=== PATIENT | female | born 1960 | race Caucasian/White ===

== ENCOUNTER 2017-03-15 13:23 | Emergency (ER) | payer BC ==
[2017-03-15 13:33] VITALS: BP 143/69
--- NOTE | 2017-03-15 15:59 | ED ---
Throat Pain/Nasal Congestion - HPI Summary HPI Summary: Patient presents with a complaint that she feels like her right eye vision is intermittently blurry with a small "pressure" behind her eye and intermittent floaters. She denies trauma, ESQUIVEL, eye pain of any kind, fever, swelling, drainage or itching. She last saw her optomitrist in Oct, 2016 and had a normal check up. She does not wear contacts or glasses, and does not have a foreign body sensation. - History of Current Complaint Chief Complaint: EDEyeProblem Time Seen by Provider: 03/15/17 13:44 Hx Obtained From: Patient Onset/Duration: Lasting Days, Resolved Severity: Mild Associated Signs And Symptoms: Positive: Negative Cough: None PMH/Surg Hx/FS Hx/Imm Hx Cardiovascular History: Denies: Hx Pacemaker/ICD Sensory History: Denies: Hx Contacts or Glasses, Hx Hearing Aid Opthamlomology History: Denies: Hx Contacts or Glasses Psychiatric History: Denies: Hx Panic Disorder - Cancer History Hx Chemotherapy: No Hx Radiation Therapy: No - Surgical History Surgery Procedure, Year, and Place: 1969 SKULL FRACTURE(BONE FRAGMENTS REMOVED) CLIPS IN HEAD; SKULL IMPLANT FOR SUPPORT 3 YRS AGO; MICRO DISCECTOMY L4-L5 1998 ; D&C 1984. NEED INFO ON CLIPS IN BRAINDR. SALAZAR CONFIRMED THE CLIPS ARE IN THE BRAIN TISSUE, NOT THE SKULL AND WILL NOT CLEAR PATIENT FOR MRI UNTIL OPERATIVE REPORT CAN PROVE THE CLIPS ARE SAFE Infectious Disease History: Denies: Traveled Outside the [place] in Last 30 Days - Family History Known Family History: Positive: None - Social History Occupation: Employed Part-time Lives: With Family Alcohol Use: Occasionally Substance Use Type: Reports: None Smoking Status (MU): Never Smoked Tobacco Review of Systems Negative: Photophobia, Blurred Vision, Diplopia, Drainage, Erythema Neurological: Negative Negative: Headache All Other Systems Reviewed And Are Negative: Yes Physical Exam Triage Information Reviewed: Yes Vital Signs On Initial Exam: Initial Vitals Temp Pulse Resp BP Pulse Ox 98.9 F 69 16 143/69 100 03/15/17 13:30 03/15/17 13:30 03/15/17 13:30 03/15/17 13:30 03/15/17 13:30 Vital Signs Reviewed: Yes Appearance: Positive: Well-Appearing, No Pain Distress, Thin Skin: Positive: Warm, Skin Color Reflects Adequate Perfusion, Dry, Soft Head/Face: Positive: Normal Head/Face Inspection Eyes: Positive: EOMI, KENDRA, Conjunctiva Clear. Negative: Discharge ENT: Positive: Hearing grossly normal Neck: Positive: Supple, Nontender Respiratory/Lung Sounds: Positive: Breath Sounds Present Cardiovascular: Positive: RRR Musculoskeletal: Negative: Edema Left, Edema Right Neurological: Positive: Sensory/Motor Intact, Alert, Oriented to Person Place, Time, NV Bundle Intact Distally, Normal Gait Psychiatric: Positive: Affect/Mood Appropriate AVPU Assessment: Alert Procedures - Eye Procedure Alcaine Drops Administered: Yes - for fluoroscene and tonometry exam- eye pressure 18 average Diagnostics - Vital Signs Vital Signs Temp Pulse Resp BP Pulse Ox 03/15/17 13:49 98.9 F 69 16 143/69 98 03/15/17 13:30 98.9 F 69 16 143/69 100 - Laboratory Lab Statement: Any lab studies that have been ordered have been reviewed, and results considered in the medical decision making process. EENT Course/Dx - Differential Diagnoses Differential Diagnoses: Abrasion, Corneal Abrasion, Foreign Body, Keratitis, Pain of Unknown Etiology, Penetrating Injury, Retinal Artery Occlusion, Uveitis - Diagnoses Provider Diagnoses: Discomfort of right eye Discharge - Discharge Plan Condition: Stable Disposition: HOME Patient Education Materials: Eye Pain (ED) Referrals: Jas Mcgovern MD [Primary Care Provider] - Deangelo Humphries MD [Medical Doctor] - Additional Instructions: Please call Dr. Smith's office or Dr. Humphries for a follow-up appointment. Return to the emergency department if symptoms worsen.
== END 2017-03-15 15:15 | disposition home or self-care (01) ==
LOC: ED 13:23
DX: H57.11 Ocular pain, right eye (principal)
CPT/HCPCS: 99281

== ENCOUNTER 2019-09-03 10:29 | Emergency (ER) | payer BC, OTHER ==
--- OUTSIDE RECORDS SUMMARY | 2019-09-03 10:35 | XMS REPORT | Continuity of Care Document ---
:1960 External Reference #:[id number] Author Name Monica Ng M.D. (transmitted by agent of provider Annamaria Rose) Address [address], [place] [address] Care Team Providers Name Role Phone Vika Morrell MD - Family Care Team Information Chairman & Ceo Medicine Lashay Lagunas MD - Internal Care Team Information Chairman & Ceo Medicine Problems Active Problems Provider Date Localization-related epilepsy Monica Ng M.D. Onset: 06/13/2015 Note: History of skull fracture age 9; intraparenchymal hemorrhage Left parietal region 2010 Social History Type Date Description Comments Sex Unknown Tobacco Use Start: Unknown Never Smoked Cigarettes Smoking Status Reviewed: 07/08/19 Never Smoked Cigarettes ETOH Use Occasionally consumes 1 glass of wine per wine week Tobacco Use Start: Unknown Patient has never smoked Recreational Drug Use Denies Drug Use Exercise Type/Frequency Exercises regularly seven days per week Allergies, Adverse Reactions, Alerts Description No Known Drug Allergies Medications Active Medications SIG Qnty Indications Ordering Provider Date Lamotrigine take 1 by mouth 90tabs Monica Ng, 05/13/2019 150mg daily with 25 mg M.D. Tablets to total 175 mg daily Lisinopril 1 by mouth every 90tabs Unknown 5mg Tablets day Calcium 1200+D3 1 by mouth 0nce a Unknown day [id number]-mg-Unit Tablets ER 24HR Yuvafem one vaginal twice 24tabs Ranjit Woods MD 10mcg Tablets a week Lamotrigine 1 tablet daily 90tabs Monica Ng, 25mg with 150 mg M.D. Tablets tablet to total 175 mg daily dose Probiotic 1 by mouth every Unknown Capsules day Ocuvite-Lutein 1 by mouth every Unknown day Capsules History Medications Lamotrigine take 1 by mouth Javi Rosa, 05/13/2019 - 150mg Tablets twice a day. N.P. 05/12/2019 Immunizations Description No Information Available Vital Signs Date Vital Result Comment 07/08/2019 1:07pm Height 67 inches 5'7" Weight 122.00 lb Heart Rate 62 /min BP Systolic 112 mmHg BP Diastolic 64 mmHg BMI (Body Mass Index) 19.1 kg/m2 01/27/2019 1:01pm Height 67 inches 5'7" Weight 123.00 lb Heart Rate 57 /min BP Systolic 137 mmHg BP Diastolic 70 mmHg O2 % BldC Oximetry 100 % BMI (Body Mass Index) 19.3 kg/m2 Last Menstrual Period [id number] Results Test Date Facility Test Result H/L Range Note Laboratory test 01/27/2019 [facility] Cytology SEE RESULT [address] [place] [address] [phone] Laboratory test 01/07/2019 [facility] Lamotrigine 3.5 g/mL 2.5 - 15.0 [address] (Lamictal) [place] [address] [phone] 1 SEE RESULT BELOW Name: JOYCE DIAMOND : [address]: Ranjit Woods MD Acct: [id number] Unit: [id number] AGE: 58 Location: [facility] Re01/27/19 SEX: F Status: REG REF SPEC: [id number] ANGELICA: 01/27/19-[address] [facility] [address]: Ranjit Woods MD REQ: [id number] RECD: 01/27/19 STATUS: SOUT _ ORDERED: TP IMAGE ANALYS, HPV/Thin Prep COMMENTS: [id number] Negative for Intraepithelial lesion or Malignancy Date Time Test Result Flag (u) Normal Range 01/27/19 1325 @ HPV RNA Negative Negative @ @ The high-risk HPV types detected by the assay include: 16, @ 18, 31, 33, 35, 39, 45, 51, 52, 56, 58, 59, 66, and 68. A. Ectocervical/Endocervical Specimen Adequacy: Satisfactory of evaluation Transformation zone component identified Patient Information: HPV: High risk HPV RNA testing regardless of pap results. Actual Specimen Date: 01/27/19 Last Menstrual Date: 09/28/12 ?: N Post Menopausal?: Y Hysterectomy?: N Signed by and Reported on: REBECA Perry (ASCP) [id number] This Pap test was evaluated with the assistance of the ThinPrep Test Imaging System. Due to cytologic findings at the ice cream dispenser microscope, comprehensive manual rescreening by a Rfid Developer may be required. The Pap Smear is a screening test designed to aid in the detection of premalignant and malignant conditions of the uterine cervix. It is not a diagnostic procedure and should not be used as the sole means of detecting cervical cancer. Both false- positive and false- negative reports do occur. Depending on your risk status, a Pap smear should be obtained and evaluated every 1-3 years. END OF REPORT DEPARTMENT OF PATHOLOGY, [address] [place] [address] See Yancey M.D. Director [facility] # [id number] 2 ADDITIONAL INFORMATION This test was developed and its performance characteristics determined by [facility] in a manner consistent with CLIA requirements. This test has not been cleared or approved by the U.S. Food and Drug Administration. Test Performed by: [facility] [address] [place] [address] Procedures Date Code Description Status 02/14/2019 [id number] Mammogram Completed 01/07/2019 [id number] Mammogram Completed 11/14/2015 [id number] Mammogram Completed Medical Devices Description No Information Available Encounters Type Date Location Provider Dx Diagnosis Office Visit 01/07/2019 [facility] Monica Ng, G40.109 Local- [facility] symp 1:00[facility] Brock epi w simp prt seiz,not ntrct, w/o stat epi S09.90xS Unspecified injury of head, sequela Assessments Date Code Description Provider 07/08/2019 G40.109 Localization-related (focal) (partial) Monica Ng M.D. symptomatic epilepsy 07/08/2019 S09.90xS Unspecified injury of head, sequela Monica Ng M.D. 01/27/2019 Z01.411 Encounter for gynecological examination Ranjit Woods MD (general) (routine) 01/27/2019 N83.292 Other ovarian cyst, left side Ranjit Woods MD 01/27/2019 Z12.31 Encounter for screening mammogram for Ranjit Woods MD malignant neoplasm of 01/27/2019 Z11.51 Encounter for screening for human Ranjit Woods MD papillomavirus (HPV) 01/07/2019 G40.109 Localization-related (focal) (partial) Monica Ng M.D. symptomatic epilepsy 01/07/2019 S09.90xS Unspecified injury of head, sequela Monica Ng M.D. Plan of Treatment Future Appointment(s):01/06/2020 8:30 am - Monica Ng M.D. at [facility]07/08/2019 - Monica Ng M.D.G40.109 Localization- related (focal) (partial) symptomatic epilepsyFollow up:6 OVHOYSQ89.90xS Unspecified injury of head, sequela Functional Status Description No Information Available Mental Status Description No Information Available Referrals Description No Information Available
--- OUTSIDE RECORDS SUMMARY | 2019-09-03 10:35 | XMS REPORT | Continuity of Care Document ---
:1960 External Reference #:[id number] Author Name Deangelo Humphries M.D. Address [address] [place] [address] Care Team Providers Name Role Phone Flaco Smith O.D. - Tank Builder Care Team Information Bench Worker Apprentice Lashay Lagunas MD - Internal Care Team Information Bench Worker Apprentice Medicine Problems Active Problems Provider Date Essential hypertension Onset: Simple partial seizure Onset: Note: right hand Retinal detachment Deangelo Humphries M.D. Onset: 03/16/2017 Benign neoplasm of eyelid including canthus Deangelo Humphries M.D. Onset: FH: Glaucoma Deangelo Humphries M.D. Onset: 04/03/2017 Open-angle glaucoma - borderline Deangelo Humphries M.D. Onset: 12/14/2017 Open angle with borderline findings, high Deangelo Humphries M.D. Onset: 2017 risk, right eye Other benign neoplasm of skin of right lower Deangelo Humphries M.D. Onset: 07/2018 eyelid, including canthus Social History Type Date Description Comments Sex Unknown ETOH Use Consumes 1 glass of wine per week Tobacco Use Start: Unknown Patient has never smoked Recreational Drug Use Denies Drug Use Smoking Status Reviewed: 08/01/19 Patient has never smoked Allergies, Adverse Reactions, Alerts Description No Known Drug Allergies Medications Active Medications SIG Qnty Indications Ordering Provider Date Lisinopril Take 1 Tablet By Unknown 5mg Tablets Mouth Every Day Lamotrigine Take 1 Tablet AT Unknown 175mg Tablets Bedtime Calcium 500/D Unknown [id number] Chewtabs Ocuvite [facility] Unknown Formula Capsules Immunizations Description No Information Available Vital Signs Date Vital Result Comment 03/24/2017 8:54am BP Systolic 120 mmHg BP Diastolic 70 mmHg Heart Rate 78 /min Respiratory Rate 15 /min 03/16/2017 3:36pm BP Systolic 142 mmHg BP Diastolic 74 mmHg Heart Rate 60 /min Respiratory Rate 14 /min Results Description No Information Available Procedures Date Code Description Status 02/08/2019 40971 Visual Field Exam Extended Completed Medical Devices Description No Information Available Encounters Description No Information Available Assessments Date Code Description Provider 08/01/2019 H40.013 Open angle with borderline findings, daysi Humphries M.D. risk, bilateral 08/01/2019 Z83.511 Family history of glaucoma Deangelo Humphries M.D. 08/01/2019 H33.8 Other retinal detachments Deangelo Humphries M.D. 02/08/2019 H40.013 Open angle with borderline findings, daysi Humphries M.D. risk, bilateral 02/08/2019 H40.013 Open angle with borderline findings, low Visual Field risk, bilateral Plan of Treatment 08/01/2019 - Deangelo Humphries M.D.H40.013 Open angle with borderline findings, low risk, bilateralComments:Smoking can increase the risk of developing or worsening any eye related disease, as well as affect your overall health. If you are a smoker, we strongly recommend that you quit.If you are not a smoker, we strongly recommend that you do not start. Dr. Humphries is considering you a Glaucoma suspect. This means the eye pressure in your eyes are higher than average, your optic nerve appearance is suspicious, or you have strong risk factors; but you have not been diagnosed with Glaucoma. Follow up appointments are very important to keep.Follow up:1 Year Follow Up DFE/IOP OCT ON Visual Field 30-2 You can expect to have your eyes dilated at your next visit. If Dr. Humphries orders any additional testing, it may require extra time. We recommend that you bring sunglasses, as dilation drops often make you light sensitive until they wear off. We alwaysrecommend you bring someone to drive you home if you are uncomfortable driving with your eyes dilated. If you have any questions before your next visit, feel free to call our office at .O32.374 Family history of glaucomaComments:Having a family history of glaucoma is a risk factor for the possibility of you developing glaucoma.However, having a family history does not mean you show any signs of glaucoma now, or will develop glaucoma in the future. It is important that you have a dilated eye exam annually, because even thoughglaucoma is a treatable disease, it does not present itself with any signs or symptoms.H33.8 Other retinal detachmentsComments:The area in the right retina that was treated for a hole/ tear looks stable. I do not see any new holes or tears in your right retina at this time. If you notice any new flashes of light or a sudden onset of floaters in your vision, please give our office a call immediately to schedule an appointment. Functional Status Description No Information Available Mental Status Description No Information Available Referrals Description No Information Available
[2019-09-03 10:39] VITALS: BP 154/74
--- NOTE | 2019-09-03 11:08 | UC ---
FLU HPI - HPI Summary HPI Summary: 58-year-old female presents with onset of fever, chills, general malaise, body aches, nasal congestion, sore throat, and productive cough yesterday. Reports max temperature of 100.2 F. No known sick contact. Patient has received her flu shot. Denies ear pain, dysphagia, chest pain, shortness of breath, abdominal pain, nausea, vomiting, or diarrhea. - History of Current Complaint Chief Complaint: UCGeneralIllness Stated Complaint: CONGESTION COUGH FEVER Time Seen by Provider: 09/03/19 10:48 Hx Obtained From: Patient Pain Intensity: 3 - Allergy/Home Medications Allergies/Adverse Reactions: Allergies Allergy/AdvReac Type Severity Reaction Status Date / Time No Known Allergies Allergy Verified 09/03/19 10:39 PMH/Surg Hx/FS Hx/Imm Hx Cardiovascular History: Hypertension - Surgical History Surgical History: Yes Surgery Procedure, Year, and Place: 1969 SKULL FRACTURE(BONE FRAGMENTS REMOVED) CLIPS IN HEAD; SKULL IMPLANT FOR SUPPORT 3 YRS AGO; MICRO DISCECTOMY L4-L5 1998 ; D&C 1984. NEED INFO ON CLIPS IN BRAINDR. SALAZAR CONFIRMED THE CLIPS ARE IN THE BRAIN TISSUE, NOT THE SKULL AND WILL NOT CLEAR PATIENT FOR MRI UNTIL OPERATIVE REPORT CAN PROVE THE CLIPS ARE SAFE - Family History Known Family History: Positive: Non-Contributory - Social History Occupation: Employed Full-time Lives: With Family Alcohol Use: Occasionally Substance Use Type: None Smoking Status (MU): Never Smoked Tobacco Review of Systems All Other Systems Reviewed And Are Negative: Yes Constitutional: Positive: Fever, Chills, Fatigue Skin: Negative: Rash Eyes: Negative: Drainage, Eye Redness ENT: Positive: Sore Throat, Nasal Discharge, Sinus Congestion, Sinus Pain/ Tenderness. Negative: Ear Ache Respiratory: Positive: Cough. Negative: Shortness Of Breath Cardiovascular: Negative: Palpitations, Chest Pain Gastrointestinal: Negative: Abdominal Pain, Vomiting, Diarrhea, Nausea Genitourinary: Positive: Negative Musculoskeletal: Positive: Myalgia Neurological: Positive: Negative Is Patient Immunocompromised?: No Physical Exam - Summary Physical Exam Summary: GENERAL APPEARANCE: Alert and cooperative older adult female who appears to be in no acute distress.HEAD: Atraumatic. normocephalic. EYES: Conjunctiva clear. No drainage. EARS: External auditory canals and tympanic membranes clear, hearing grossly intact. NOSE: Moderate nasal congestion. No nasal discharge. THROAT: Pharyngeal erythema with post-nasal drip. No tonsilar inflammation, swelling, exudate, or lesions. Uvula midline. NECK: Neck supple, non-tender without lymphadenopathy. CARDIAC: Normal S1 and S2. No S3, S4 or murmurs. Rhythm is regular. There is no peripheral edema, cyanosis or pallor. Extremities are warm and well perfused. Capillary refill is less than 2 seconds. Peripheral pulses intact. LUNGS: Clear to auscultation without rales, rhonchi, wheezing or diminished breath sounds. Non-productive cough. ABDOMEN: Positive bowel sounds. Soft, nondistended, nontender. No guarding or rebound. No masses or hepatosplenomegally. MUSKULOSKELETAL: ROM intact to all extremities. No joint erythema or tenderness. Normal muscular development. Normal gait. SKIN: Skin normal color, texture and turgor with no lesions or eruptions. Triage Information Reviewed: Yes Vital Signs: Initial Vital Signs Temp 99.3 F 09/03/19 10:36 Pulse 88 09/03/19 10:36 Resp 20 09/03/19 10:36 BP 154/74 09/03/19 10:36 Pulse Ox 100 09/03/19 10:36 Vital Signs Reviewed: Yes Flu Course/Dx - Course Course Of Treatment: 58-year-old female presents with onset of fever, chills, general malaise, body aches, nasal congestion, sore throat, and productive cough yesterday. Reports max temperature of 100.2 F. No known sick contact. Patient has received her flu shot. Denies ear pain, dysphagia, chest pain, shortness of breath, abdominal pain, nausea, vomiting, or diarrhea. Afebrile. Hypertensive otherwise vital signs stable. Patient had moderate nasal congestion, pharyngeal erythema with postnasal drip, no tonsillar swelling or exudate, no cervical lymphadenopathy, clear bilateral breath sounds, a nonproductive cough, and otherwise unremarkable exam. Rapid flu test was positive for influenza A. Discussed with patient the risks and benefits of treating with oseltamivir and she is electing to start at this time. She is to take oseltamivir 75 mg twice a day 5 days as well as use symptomatic treatment for influenza. She is to follow-up with her primary care provider in 5-7 days if symptoms are not improving. Anticipatory guidance and warning symptoms were reviewed with the patient. Verbalizes understanding and agrees with plan of care. - Differential Dx/Diagnosis Differential Diagnosis/HQI/PQRI: Bronchitis, Influenza, Pneumonia, Upper Respiratory Infection Provider Diagnosis: Influenza A Discharge ED - Sign-Out/Discharge Documenting (check all that apply): Patient Departure All imaging exams completed and their final reports reviewed: No Studies - Discharge Plan Condition: Stable Disposition: HOME Prescriptions: Benzonatate CAP* [Tessalon 100 MG CAP*] 100 mg PO TID PRN #21 cap PRN Reason: Cough Oseltamivir CAP* [Tamiflu CAP*] 75 mg PO BID #10 cap Patient Education Materials: Influenza (ED) Referrals: Lashay Lagunas MD [Primary Care Provider] - 5 Days Additional Instructions: Your flu test in the clinic today was positive for influenza A. Start Tamiflu 1 capsule twice a day for 5 days. Get plenty of rest. Drink plenty of fluids to avoid dehydration especially if you are running any fever. Take over the counter acetaminophen (Tylenol) or ibuprofen (Advil, Motrin) according to directions as needed for pain or fever. Take Tessalon Perles 1 cap every 8 hours as needed for cough. Use salt water gargles several times a day if you have a sore throat. You may also use Chloraseptic spray or Cepacol lonzenges according to directions which contain a numbing medication and can provide some temporary relief from your sore throat. Follow up with your primary care provider in 5-7 days if symptoms persist. Seek immediate medical attention in the emergency room if you have fever greater than 100.5 F despite taking acetaminophen or ibuprofen, have chest pain , difficulty breathing, are unable to swallow, or have any worsening of symptoms. - Billing Disposition and Condition Condition: STABLE Disposition: Home - Attestation Statements Provider Attestation: I was available for consult. This patient was seen by the VINCENT. The patient was not presented to, seen by, or examined by me. -Michelle
[2019-09-05 15:30] LABS: Influenza A Molecular POSITIVE (Negative)
== END 2019-09-03 12:02 | disposition home or self-care (01) ==
LOC: UCEAST 10:29
DX: J11.1 Influenza due to unidentified influenza virus with other respiratory manifestations (principal); R53.81 Other malaise; J02.9 Acute pharyngitis, unspecified; I10 Essential (primary) hypertension
CPT/HCPCS: 99212; G0463